=== PATIENT | female | born 2000 | race Two or more races ===

== ENCOUNTER 2021-12-04 17:31 | Observation (INO) | payer MEDICAID, OTHER ==
[~2021-12-04] VITALS: Ht 162.6 cm; Wt 81.6 kg
[2021-12-04] MEDS ORDERED: PREN-96 PO (18:35)
[2021-12-04 19:53] LABS: Alcohol, Urine < 3.0 mg/dL (0-10); Barbiturate Scree,Urine NEGATIVE (NEGATIVE); Benzodiazephine Screen, Urine NEGATIVE (NEGATIVE); Cannabinoid Screen, Urine POSITIVE (NEGATIVE); Cocaine Screen, Urine NEGATIVE (NEGATIVE); Opiate Scree,Urine NEGATIVE (NEGATIVE); Phencyclidine Screen, Urine NEGATIVE (NEGATIVE)
[2021-12-04 20:00] LABS: Amphetamine Screen, Urine NEGATIVE (NEGATIVE); Urine Amorphous Crystal MOD /hpf (None Seen); Urine Bacteria FEW /hpf (None Seen); Urine Blood Negative /uL (Negative); Urine Specific Gravity 1.021 (1.001-1.035); Urine WBC 2 /hpf (0 - 5)
[2021-12-04 20:06] LABS: Basophils # (auto) 0 10 ^3/uL (0-0.2); Basophils % (auto) 0.2 % (0.0-2.0); Eosinophils # (auto) 0 10 ^3/uL (0-0.8); Eosinophils % (auto) 0.5 % (0.0-7.0); Hemoglobin 11.6 g/dL (12.2-16.2); Lymphocytes # (auto) 1.4 10 ^3/uL (0.4-5.4); Lymphocytes % (auto) 17.2 % (10.0-50.0); Mean Corpuscular Hemoglobin 31.6 pg (28.0-32.0); Monocytes # (auto) 0.4 10 ^3/uL (0-1.3); Monocytes % (auto) 4.9 % (0.0-12.0); Neutrophils # (auto) 6.1 10 ^3/uL (1.6-8.6); Neutrophils % (auto) 77.2 % (37.0-80.0); Nucleated Red Blood Cells % 0.1 %; Red Blood Cells 3.65 10^6/uL (4.0-5.20); Red Cell Distribution Width 12.2 % (11.8-14.3); White Blood Cell 7.9 10^3/uL (4.4-10.8)
[2021-12-04 20:22] LABS: Albumin 2.7 g/dL (3.4-5.0); Calcium 8.7 mg/dL (8.5-10.1); Potassium 3.7 mmol/L (3.5-5.1)
[2021-12-04 20:25] LABS: Bilirubin, Total 0.3 mg/dL (0.2-1.0); Total Protein 6.1 g/dL (6.4-8.2)
[2021-12-04 20:32] LABS: INR 0.87 (0.9-1.15); Partial Thromboplastin Time 24.8 sec (24.6-33.4)
[2021-12-06 06:06] LABS: RPR Non Reactive (Non Reactive); Rubella Antibodies, IgG 2.48 index (Immune >0.99)
== END 2021-12-04 19:30 | disposition home or self-care (01) ==
LOC: EDBD 17:31 → LDRP 17:31
PROVIDERS: ADMIT Obstetrics & Gynecology; ATTEND Obstetrics & Gynecology
DX: O09.33 Supervision of pregnancy with insufficient antenatal care, third trimester (principal); Z20.822 Contact with and (suspected) exposure to COVID-19; O99.323 Drug use complicating pregnancy, third trimester; F12.90 Cannabis use, unspecified, uncomplicated; Z3A.34 34 weeks gestation of pregnancy
CPT/HCPCS: 36415; 59025; 76805; 80053; 80307; 81001; 81002; 83036; 85025; 85610; 85730; 86592; 86703; 86762; 86850; 86900; 86901; 87340; 87426; 94760; G0378

== ENCOUNTER → 2021-12-09 | Outpatient (CLI) | payer MEDICAID ==
[~2021-12-09] MED LIST: PREN-96 PO
[2021-12-09 09:38] LABS: Basophils # (auto) 0 10 ^3/uL (0-0.2); Basophils % (auto) 0.4 % (0.0-2.0); Eosinophils # (auto) 0.1 10 ^3/uL (0-0.8); Eosinophils % (auto) 1.3 % (0.0-7.0); Hematocrit 36.1 % (36.0-46.0); Hemoglobin 12.1 g/dL (12.2-16.2); Lymphocytes # (auto) 1.9 10 ^3/uL (0.4-5.4); Lymphocytes % (auto) 21.1 % (10.0-50.0); Mean Corpuscular Hemoglobin 31.4 pg (28.0-32.0); Mean Corpuscular Hgb Conc. 33.6 g/dL (32.0-36.0); Mean Corpuscular Volume 93.4 fL (80.0-100.0); Monocytes # (auto) 0.5 10 ^3/uL (0-1.3); Monocytes % (auto) 5.3 % (0.0-12.0); Neutrophils # (auto) 6.5 10 ^3/uL (1.6-8.6); Neutrophils % (auto) 71.9 % (37.0-80.0); Red Blood Cells 3.86 10^6/uL (4.0-5.20); Red Cell Distribution Width 12.4 % (11.8-14.3)
== END | disposition home or self-care (01) ==
LOC: LAB 09:19
PROVIDERS: ATTEND Obstetrics & Gynecology
DX: Z34.00 Encounter for supervision of normal first pregnancy, unspecified trimester (principal); O99.810 Abnormal glucose complicating pregnancy
CPT/HCPCS: 36415; 82951; 85025

== ENCOUNTER → 2021-12-11 | Outpatient (CLI) | payer MEDICAID ==
[2021-12-11 11:56] LABS: Basophils # (auto) 0 10 ^3/uL (0-0.2); Basophils % (auto) 0.1 % (0.0-2.0); Eosinophils # (auto) 0 10 ^3/uL (0-0.8); Eosinophils % (auto) 0.4 % (0.0-7.0); Hematocrit 36.4 % (36.0-46.0); Lymphocytes # (auto) 1.3 10 ^3/uL (0.4-5.4); Lymphocytes % (auto) 16.4 % (10.0-50.0); Mean Corpuscular Hemoglobin 30.9 pg (28.0-32.0); Mean Corpuscular Hgb Conc. 33.1 g/dL (32.0-36.0); Mean Corpuscular Volume 93.5 fL (80.0-100.0); Monocytes # (auto) 0.3 10 ^3/uL (0-1.3); Monocytes % (auto) 3.5 % (0.0-12.0); Neutrophils # (auto) 6.2 10 ^3/uL (1.6-8.6); Neutrophils % (auto) 79.6 % (37.0-80.0); Red Blood Cells 3.89 10^6/uL (4.0-5.20); Red Cell Distribution Width 12.4 % (11.8-14.3); White Blood Cell 7.8 10^3/uL (4.4-10.8)
[2021-12-12 08:06] LABS: RPR Non Reactive (Non Reactive)
== END | disposition home or self-care (01) ==
LOC: LAB 11:39
PROVIDERS: ATTEND Obstetrics & Gynecology
DX: Z34.80 Encounter for supervision of other normal pregnancy, unspecified trimester (principal); Z3A.00 Weeks of gestation of pregnancy not specified
CPT/HCPCS: 36415; 84112; 85025; 86592

== ENCOUNTER 2021-12-23 08:51 | Observation (INO) | payer MEDICAID | END 2021-12-23 16:35 | disposition home or self-care (01) | LOC: UNDOADMOB 13:10 → LDRP 13:10 | PROVIDERS: ADMIT Obstetrics & Gynecology Obstetrics; ATTEND Obstetrics & Gynecology Obstetrics | DX: O24.419 Gestational diabetes mellitus in pregnancy, unspecified control (principal); Z3A.37 37 weeks gestation of pregnancy | CPT/HCPCS: 59025; 76818; 81002; 82948; 82962; 94760; G0378 ==

== ENCOUNTER → 2021-12-25 | Outpatient (CLI) | payer MEDICAID ==
[2021-12-25 10:44] LABS: Basophils # (auto) 0 10 ^3/uL (0-0.2); Basophils % (auto) 0.1 % (0.0-2.0); Eosinophils # (auto) 0 10 ^3/uL (0-0.8); Eosinophils % (auto) 0.5 % (0.0-7.0); Hematocrit 36.8 % (36.0-46.0); Hemoglobin 12.2 g/dL (12.2-16.2); Lymphocytes # (auto) 1.2 10 ^3/uL (0.4-5.4); Lymphocytes % (auto) 16.2 % (10.0-50.0); Mean Corpuscular Hemoglobin 30.6 pg (28.0-32.0); Mean Corpuscular Hgb Conc. 33.3 g/dL (32.0-36.0); Mean Corpuscular Volume 91.8 fL (80.0-100.0); Monocytes # (auto) 0.3 10 ^3/uL (0-1.3); Monocytes % (auto) 4.3 % (0.0-12.0); Neutrophils # (auto) 6.1 10 ^3/uL (1.6-8.6); Neutrophils % (auto) 78.9 % (37.0-80.0); Red Cell Distribution Width 12.3 % (11.8-14.3); White Blood Cell 7.7 10^3/uL (4.4-10.8)
[2021-12-26 08:06] LABS: RPR Non Reactive (Non Reactive)
== END | disposition home or self-care (01) ==
LOC: LAB 09:50
PROVIDERS: ATTEND Obstetrics & Gynecology
DX: Z34.00 Encounter for supervision of normal first pregnancy, unspecified trimester (principal); Z3A.00 Weeks of gestation of pregnancy not specified
CPT/HCPCS: 36415; 83036; 84112; 84702; 85025; 86592; 86703; 86762; 86850; 86900; 86901; 87086; 87340

== ENCOUNTER 2021-12-26 07:56 | Observation (INO) | payer MEDICAID ==
[~2021-12-26] VITALS: Ht 162.6 cm; Wt 79.4 kg
[2022-01-08] MEDS ORDERED: CEPHALEXIN 250 MG CAP PO SCH (12:27)
[2022-01-08] MEDS ORDERED: CEPH-510 PO (12:59)
== END 2022-01-08 15:30 | disposition home or self-care (01) ==
LOC: LDRP 01-08 10:54 → UNDOADMOB 01-08 10:54 → LDRP 01-08 11:10
PROVIDERS: ADMIT Obstetrics & Gynecology; ATTEND Obstetrics & Gynecology
DX: O24.419 Gestational diabetes mellitus in pregnancy, unspecified control (principal); O62.9 Abnormality of forces of labor, unspecified; O99.891 Other specified diseases and conditions complicating pregnancy; M54.9 Dorsalgia, unspecified; Z3A.39 39 weeks gestation of pregnancy
CPT/HCPCS: 59025; 76818; 81002; 82948; 82962; 94760; G0378

== ENCOUNTER → 2021-12-31 | Outpatient (CLI) | payer MEDICAID ==
[2021-12-31 10:45] LABS: Basophils # (auto) 0 10 ^3/uL (0-0.2); Basophils % (auto) 0.3 % (0.0-2.0); Eosinophils # (auto) 0 10 ^3/uL (0-0.8); Eosinophils % (auto) 0.3 % (0.0-7.0); Hematocrit 35.6 % (36.0-46.0); Hemoglobin 12.2 g/dL (12.2-16.2); Lymphocytes # (auto) 1.3 10 ^3/uL (0.4-5.4); Lymphocytes % (auto) 15.9 % (10.0-50.0); Mean Corpuscular Hemoglobin 30.7 pg (28.0-32.0); Mean Corpuscular Hgb Conc. 34.2 g/dL (32.0-36.0); Mean Corpuscular Volume 89.8 fL (80.0-100.0); Monocytes # (auto) 0.4 10 ^3/uL (0-1.3); Monocytes % (auto) 4.5 % (0.0-12.0); Neutrophils # (auto) 6.6 10 ^3/uL (1.6-8.6); Red Blood Cells 3.96 10^6/uL (4.0-5.20); Red Cell Distribution Width 12.5 % (11.8-14.3); White Blood Cell 8.4 10^3/uL (4.4-10.8)
== END | disposition home or self-care (01) ==
LOC: LAB 10:09
PROVIDERS: ATTEND Obstetrics & Gynecology
DX: Z34.80 Encounter for supervision of other normal pregnancy, unspecified trimester (principal); Z3A.00 Weeks of gestation of pregnancy not specified; Z72.51 High risk heterosexual behavior
CPT/HCPCS: 36415; 85025; 86850; 86900; 86901; 87086; 87340

== ENCOUNTER 2022-01-09 03:57 | Inpatient (IN) | payer MEDICAID ==
[~2022-01-09] VITALS: Ht 160 cm; Wt 91.2 kg
[~2022-01-09 03:57] MED LIST changes: +CEPH-510 PO
[2022-01-09] MEDS ORDERED: LIDOCAINE 2%HCL (LOCAL ANESTH.) INJ 10ml MDV IJ PRN (04:30)
[2022-01-09] MEDS ORDERED: PROMETHAZINE HCL 25 MG/ML 1ML IV PRN (04:30)
[2022-01-09] MEDS ORDERED: DERMOPLAST 60ML BOTTLE TOP PRN (04:30)
[2022-01-09] MEDS ORDERED: WITCH HAZEL-GLYCERIN PAD TOP PRN (04:30)
[2022-01-09] MEDS ORDERED: BUTORPHANOL TARTRATE 2 MG/1 ML VIAL IV PRN (04:30)
[2022-01-09] MEDS ORDERED: PHISODERM TOP SOLN 240ML BTL TOP PRN (04:30)
[2022-01-09] MEDS ORDERED: LACT. RINGERS/OXYTOCIN 20UNITS 500 ML IV ONE ×2 (04:45→05:15)
[2022-01-09] MEDS: LACTATED RINGER'S 1,000 ML IV SCH ×3 (04:46→22:17)
[2022-01-09 05:10] LABS: Basophils # (auto) 0 10 ^3/uL (0-0.2); Basophils % (auto) 0.3 % (0.0-2.0); Eosinophils # (auto) 0 10 ^3/uL (0-0.8); Hematocrit 34.9 % (36.0-46.0); Hemoglobin 11.7 g/dL (12.2-16.2); Lymphocytes # (auto) 0.6 10 ^3/uL (0.4-5.4); Lymphocytes % (auto) 8.4 % (10.0-50.0); Mean Corpuscular Hemoglobin 29.7 pg (28.0-32.0); Mean Corpuscular Hgb Conc. 33.4 g/dL (32.0-36.0); Mean Corpuscular Volume 88.9 fL (80.0-100.0); Monocytes # (auto) 0.6 10 ^3/uL (0-1.3); Monocytes % (auto) 7.6 % (0.0-12.0); Neutrophils # (auto) 6.4 10 ^3/uL (1.6-8.6); Neutrophils % (auto) 83.7 % (37.0-80.0); Red Blood Cells 3.93 10^6/uL (4.0-5.20); Red Cell Distribution Width 12.6 % (11.8-14.3); White Blood Cell 7.6 10^3/uL (4.4-10.8)
[2022-01-09 05:16] LABS: Urine Bacteria FEW /hpf (None Seen); Urine Blood 1+ /uL (Negative); Urine Mucus FEW (None Seen); Urine Specific Gravity 1.028 (1.001-1.035); Urine WBC 52 /hpf (0 - 5)
[2022-01-09] MEDS: BUTORPHANOL TARTRATE 2 MG/1 ML VIAL IV PRN ×2 (05:23→14:51)
[2022-01-09 05:32] LABS: Albumin 2.7 g/dL (3.4-5.0); Calcium 8.3 mg/dL (8.5-10.1); Potassium 3.8 mmol/L (3.5-5.1)
[2022-01-09 05:36] LABS: BUN/Creatinine Ratio 13.8; Bilirubin, Total 0.6 mg/dL (0.2-1.0); Total Protein 6.1 g/dL (6.4-8.2)
[2022-01-09 05:37] LABS: Alcohol, Urine < 3.0 mg/dL (0-10); Amphetamine Screen, Urine NEGATIVE (NEGATIVE); Barbiturate Scree,Urine NEGATIVE (NEGATIVE); Benzodiazephine Screen, Urine NEGATIVE (NEGATIVE); Cannabinoid Screen, Urine POSITIVE (NEGATIVE); Cocaine Screen, Urine NEGATIVE (NEGATIVE); Opiate Scree,Urine NEGATIVE (NEGATIVE); Phencyclidine Screen, Urine NEGATIVE (NEGATIVE)
[2022-01-09 05:38] LABS: INR 0.88 (0.9-1.15); Partial Thromboplastin Time 27.1 sec (24.6-33.4)
[2022-01-09] MEDS: ACCU-CHEK COMFORT CURVE STRIP VI SCH ×4 (08:05→20:30)
[2022-01-09] MEDS: miSOPROStol 50 MCG per PRE-CUT 1/2 TAB PO PRN ×2 (08:28→12:29)
[2022-01-09] MEDS ORDERED: PENICILLIN G POT 5MIL/D5 50ML 50 ML IV ONE (11:00)
[2022-01-09] MEDS ORDERED: PENICILLIN G POTASSIUM 2,500,000 UNITS in D5W 5% 50 ML IV SCH (15:00)
[2022-01-09] MEDS ORDERED: D5W 5% 1,000 ML IV ONE (16:00)
[2022-01-09] MEDS ORDERED: D5W/LACTATED RINGERS 1,000 ML IV ONE (16:15)
[2022-01-09] MEDS ORDERED: LACT. RINGERS/OXYTOCIN 20UNITS 1,000 ML IV SCH (16:45)
[2022-01-09] MEDS ORDERED: TERBUTALINE SULFATE 1 MG/ML 1ML VIAL SC PRN (16:45)
[2022-01-09] MEDS: PENICILLIN G POTASSIUM 2,500,000 UNITS in D5W 5% 50 ML IV SCH ×2 (16:52→20:14)
[2022-01-09] MEDS ORDERED: ROPIVACAINE HCL 200 ML EPI SCH (18:00)
[2022-01-09] MEDS ORDERED: ePHEDrine SULFATE 50 MG/ML AMP IV ONE (18:00)
[2022-01-09] MEDS ORDERED: fentaNYL CITRATE 100 MCG/2 ML VL IV ONE (18:00)
[2022-01-09] MEDS ORDERED: NALOXONE HCL 0.4 MG/ML VIAL IV ONE (18:00)
[2022-01-09] MEDS ORDERED: LIDOCAINE HCL 2 %PF INJ 10ML AMP IJ ONE (18:00)
[2022-01-09] MEDS ORDERED: LACTATED RINGER'S 1,000 ML IV ONE (18:15)
[2022-01-09] MEDS ORDERED: ceFAZolin 2 GM in D5W 5% 100 ML IV ONE (20:30)
[2022-01-09] MEDS ORDERED: ceFAZolin 1GM/50ML 50 ML IV SCH (22:00)
[2022-01-09] MEDS ORDERED: SODIUM CHLORIDE 0.9% 300 ML IUPC ONE (22:45)
[2022-01-09] MEDS: SODIUM CHLORIDE 0.9% 1,000 ML IUPC SCH (23:30)
[2022-01-10] MEDS: PENICILLIN G POTASSIUM 2,500,000 UNITS in D5W 5% 50 ML IV SCH ×3 (00:25→09:09)
[2022-01-10] MEDS: ACCU-CHEK COMFORT CURVE STRIP VI SCH ×3 (01:48→10:14)
[2022-01-10 05:07] LABS: RPR Non Reactive (Non Reactive)
[2022-01-10] MEDS: ceFAZolin 1GM/50ML 50 ML IV SCH ×3 (06:01→22:33)
[2022-01-10] MEDS: SODIUM CHLORIDE 0.9% 1,000 ML IUPC SCH (08:45)
[2022-01-10] MEDS: LACTATED RINGER'S 1,000 ML IV SCH (09:09)
[2022-01-10] MEDS ORDERED: miSOPROStol 100 mcg TAB ONE (11:09)
[2022-01-10] MEDS ORDERED: METHYLERGONOVINE MALEATE 0.2 MG/ML AMP IM ONE (11:09)
[2022-01-10] MEDS ORDERED: ACETAMINOPHEN 325 MG TAB PO PRN (12:30)
[2022-01-10] MEDS ORDERED: ONDANSETRON HCL 4 MG/2 ML VIAL IV PRN (12:30)
[2022-01-10] MEDS ORDERED: miSOPROStol 100 mcg TAB PR PRN (14:30)
[2022-01-10] MEDS ORDERED: METHYLERGONOVINE MALEATE 0.2 MG/ML AMP IM PRN (14:30)
[2022-01-10] MEDS ORDERED: miSOPROStol 100 mcg TAB SL PRN (14:30)
[2022-01-10 14:39] VITALS: BP 108/67
[2022-01-10 19:30] VITALS: BP 98/54
[2022-01-10] MEDS: IBUPROFEN 600 MG TAB PO PRN (22:33)
[2022-01-10 23:30] VITALS: BP 115/73
[2022-01-11 03:30] VITALS: BP 98/65
[2022-01-11] MEDS ORDERED: ACCU-CHEK COMFORT CURVE STRIP VI ONE (05:00)
[2022-01-11 07:00] VITALS: BP 108/60
[2022-01-11] MEDS: IBUPROFEN 600 MG TAB PO PRN ×2 (07:07→19:33)
[2022-01-11] MEDS: ceFAZolin 1GM/50ML 50 ML IV SCH (07:07)
[2022-01-11 11:30] VITALS: BP 108/60
[2022-01-11 15:30] VITALS: BP 100/67
[2022-01-11 19:00] VITALS: BP 107/64
== END 2022-01-11 20:12 | disposition home or self-care (01) | DRG 560 ==
LOC: LDRP 03:57 → OBSVTOIN 04:10 → LDRP 04:11
PROVIDERS: ADMIT Obstetrics & Gynecology; ATTEND Obstetrics & Gynecology
PROC: 10H07YZ Insertion of Other Device into Products of Conception, Via Natural or Artificial Opening (ICD-10-PCS; 2022-01-09)
PROC: 10E0XZZ Delivery of Products of Conception, External Approach (ICD-10-PCS; principal; 2022-01-10)
PROC: 0KQM0ZZ Repair Perineum Muscle, Open Approach (ICD-10-PCS; 2022-01-10)
PROC: 3E0R3BZ Introduction of Anesthetic Agent into Spinal Canal, Percutaneous Approach (ICD-10-PCS; 2022-01-10)
PROC: 00HU33Z Insertion of Infusion Device into Spinal Canal, Percutaneous Approach (ICD-10-PCS; 2022-01-10)
PROC: 0W8NXZZ Division of Female Perineum, External Approach (ICD-10-PCS; 2022-01-10)
DX: O98.52 Other viral diseases complicating childbirth (principal); Z37.0 Single live birth; U07.1 COVID-19; Z3A.39 39 weeks gestation of pregnancy; O99.214 Obesity complicating childbirth; O70.1 Second degree perineal laceration during delivery
CPT/HCPCS: 36415; 59025; 59409; 76818; 80053; 80307; 81001; 81002; 82948; 82962; 85025; 85610; 85730; 86592; 86850; 86900; 86901; 94760; 96360; 96361; 96365; 96366; 96372; 96374; 96375; G0378; J0690; J2001; J2540; J2590; J7060

== ENCOUNTER 2022-11-12 07:19 | Inpatient (IN) | payer MEDICAID ==
[~2022-11-12] VITALS: Ht 165.1 cm; Wt 74.8 kg
[~2022-11-12 07:19] MED LIST changes: -CEPH-510 PO
[2022-11-12] MEDS ORDERED: WITCH HAZEL-GLYCERIN PAD TOP PRN (07:45)
[2022-11-12] MEDS ORDERED: PHISODERM TOP SOLN 240ML BTL TOP PRN (07:45)
[2022-11-12] MEDS ORDERED: PROMETHAZINE HCL 25 MG/ML 1ML IV PRN (07:45)
[2022-11-12] MEDS ORDERED: LIDOCAINE 2%HCL (LOCAL ANESTH.) INJ 20ML MDV IJ PRN (07:45)
[2022-11-12] MEDS ORDERED: DERMOPLAST 60ML BOTTLE TOP PRN (07:45)
[2022-11-12] MEDS ORDERED: LACTATED RINGER'S 1,000 ML IV SCH (07:45)
[2022-11-12] MEDS ORDERED: PENICILLIN G POT 5MIL/D5 50ML 50 ML IV ONE ×2 (08:00→08:10)
[2022-11-12] MEDS ORDERED: LACT. RINGERS/OXYTOCIN 20UNITS 1,000 ML IV ONE (08:10)
[2022-11-12 08:37] LABS: Basophils # (auto) 0 10 ^3/uL (0-0.2); Eosinophils # (auto) 0.1 10 ^3/uL (0-0.8); Hemoglobin 9.9 g/dL (12.2-16.2); Monocytes # (auto) 0.4 10 ^3/uL (0-1.3); Neutrophils # (auto) 6.4 10 ^3/uL (1.6-8.6)
[2022-11-12 08:37] LABS: Urine Bacteria NONE SEEN /hpf (None Seen); Urine Blood Negative /uL (Negative); Urine Mucus FEW (None Seen); Urine Specific Gravity 1.019 (1.001-1.035); Urine WBC 7 /hpf (0 - 5)
[2022-11-12 08:39] LABS: Basophils % (auto) 0.2 % (0.0-2.0); Hematocrit 30.4 % (36.0-46.0); Lymphocytes # (auto) 1.6 10 ^3/uL (0.4-5.4); Lymphocytes % (auto) 18.9 % (10.0-50.0); Mean Corpuscular Hemoglobin 26.4 pg (28.0-32.0); Mean Corpuscular Hgb Conc. 32.6 g/dL (32.0-36.0); Mean Corpuscular Volume 81.1 fL (80.0-100.0); Monocytes % (auto) 4.7 % (0.0-12.0); Neutrophils % (auto) 75.2 % (37.0-80.0); Red Blood Cells 3.75 10^6/uL (4.0-5.20); Red Cell Distribution Width 15.2 % (11.8-14.3); White Blood Cell 8.4 10^3/uL (4.4-10.8)
[2022-11-12 08:49] LABS: Albumin 2.5 g/dL (3.4-5.0); Calcium 8.3 mg/dL (8.5-10.1); Potassium 3.6 mmol/L (3.5-5.1)
[2022-11-12 08:54] LABS: BUN/Creatinine Ratio 12.3 (10.0-20.0); Bilirubin, Total 0.2 mg/dL (0.2-1.0); Total Protein 6.5 g/dL (6.4-8.2)
[2022-11-12 09:25] LABS: INR 0.9 (0.9-1.15); Partial Thromboplastin Time 25.4 SEC (24.5-34.5)
[2022-11-12 09:30] LABS: Amphetamine Screen, Urine NEGATIVE (NEGATIVE); Barbiturate Scree,Urine NEGATIVE (NEGATIVE); Benzodiazephine Screen, Urine NEGATIVE (NEGATIVE); Cannabinoid Screen, Urine NEGATIVE (NEGATIVE); Cocaine Screen, Urine NEGATIVE (NEGATIVE); Opiate Scree,Urine NEGATIVE (NEGATIVE); Phencyclidine Screen, Urine NEGATIVE (NEGATIVE)
[2022-11-12] MEDS ORDERED: NALOXONE HCL 0.4 MG/ML VIAL IV ONE (09:30)
[2022-11-12] MEDS ORDERED: ePHEDrine SULFATE 50 MG/ML AMP IV ONE (09:30)
[2022-11-12] MEDS ORDERED: LACTATED RINGER'S 1,000 ML IV ONE (09:30)
[2022-11-12] MEDS ORDERED: ROPIVACAINE HCL 200 ML EPI SCH ×3 (09:30→10:45)
[2022-11-12] MEDS ORDERED: fentaNYL CITRATE 100 MCG/2 ML VL IV ONE (09:30)
[2022-11-12] MEDS ORDERED: LACT. RINGERS/OXYTOCIN 20UNITS 1,000 ML IV SCH (09:30)
[2022-11-12] MEDS ORDERED: Lidocaine W-Epinephrine 1.5%-1:200,000 INJ 10ml Vial IJ ONE (09:30)
[2022-11-12 09:32] LABS: Alcohol, Urine < 3.0 mg/dL (0-10)
[2022-11-12] MEDS: PENICILLIN G POTASSIUM 2,500,000 UNITS in D5W 5% 50 ML IV SCH ×2 (12:20→16:08)
[2022-11-12] MEDS ORDERED: LACTATED RINGER'S 250 ML IUPC ONE (14:30)
[2022-11-12] MEDS ORDERED: LACTATED RINGER'S 1,000 ML IUPC SCH (15:45)
[2022-11-12] MEDS ORDERED: LACT. RINGERS/OXYTOCIN 20UNITS 500 ML IV ONE ×2 (17:00→17:30)
[2022-11-12] MEDS ORDERED: ONDANSETRON ODT 4 MG TAB PO PRN (17:30)
[2022-11-12] MEDS ORDERED: ACETAMINOPHEN 325 MG TAB PO PRN (17:30)
[2022-11-12] MEDS: IBUPROFEN 600 MG TAB PO PRN (20:48)
[2022-11-12] MEDS ORDERED: DOCUSATE SOD 100 MG CAP PO SCH (22:00)
[2022-11-12 23:10] VITALS: BP 101/57; PULSE 77; RESP 16; TEMP 98.1
[2022-11-13 03:15] VITALS: BP 95/54; PULSE 78; RESP 16; TEMP 97.9
[2022-11-13] MEDS: IBUPROFEN 600 MG TAB PO PRN ×2 (07:28→17:12)
[2022-11-13 07:30] VITALS: BP 106/61; PULSE 88; RESP 16; TEMP 98
[2022-11-13 08:06] LABS: RPR Non Reactive (Non Reactive)
[2022-11-13] MEDS ORDERED: ASCO1TAB27 PO (08:11)
[2022-11-13] MEDS ORDERED: IBU600T PO (08:11)
[2022-11-13] MEDS ORDERED: CARB1TAB65 PO (08:11)
[2022-11-13] MEDS ORDERED: DOCU-265 PO (08:11)
[2022-11-13] MEDS ORDERED: PREN-96 PO (08:11)
[2022-11-13] MEDS ORDERED: ACET-1882 PO (08:11)
[2022-11-13 11:12] VITALS: BP 101/56; PULSE 68; RESP 16; TEMP 98.4; O2SAT 97
[2022-11-13] MEDS ORDERED: TETANUS-DIPTH-ACEL PERTUSSIS 0.5ML SYR Tdap IM ONE (14:45)
[2022-11-13 14:56] VITALS: BP 104/54; PULSE 72; RESP 16; TEMP 97.6; O2SAT 98
[2022-11-13 19:10] VITALS: BP 113/69; PULSE 84; RESP 15; TEMP 98.2; O2SAT 97
[2022-11-13 21:46] VITALS: BP 110/73; PULSE 82; RESP 16; TEMP 98.6; O2SAT 97
== END 2022-11-13 21:46 | disposition home or self-care (01) | DRG 560 ==
LOC: LDRP 07:19 → OBSVTOIN 07:25 → LDRP 07:26
PROVIDERS: ADMIT Obstetrics & Gynecology; ATTEND Obstetrics & Gynecology
PROC: 10E0XZZ Delivery of Products of Conception, External Approach (ICD-10-PCS; principal; 2022-11-12)
PROC: 10907ZC Drainage of Amniotic Fluid, Therapeutic from Products of Conception, Via Natural or Artificial Opening (ICD-10-PCS; 2022-11-12)
PROC: 3E0R3BZ Introduction of Anesthetic Agent into Spinal Canal, Percutaneous Approach (ICD-10-PCS; 2022-11-12)
PROC: 0HQ9XZZ Repair Perineum Skin, External Approach (ICD-10-PCS; 2022-11-12)
PROC: 00HU33Z Insertion of Infusion Device into Spinal Canal, Percutaneous Approach (ICD-10-PCS; 2022-11-12)
PROC: 3E0234Z Introduction of Serum, Toxoid and Vaccine into Muscle, Percutaneous Approach (ICD-10-PCS; 2022-11-13)
DX: O99.214 Obesity complicating childbirth (principal); Z37.0 Single live birth; E66.01 Morbid (severe) obesity due to excess calories; O70.0 First degree perineal laceration during delivery; Z3A.39 39 weeks gestation of pregnancy; Z23 Encounter for immunization
CPT/HCPCS: 36415; 59025; 59409; 62282; 80053; 80307; 81001; 81002; 85025; 85610; 85730; 86592; 86850; 86900; 86901; 90715; 94760; 96360; 96361; 96365; 96366; 96372; G0378; J2540; J2590; J7060

== ENCOUNTER 2023-02-23 22:52 | Emergency (ER) | payer MEDICAID ==
[~2023-02-23] VITALS: Ht 167.6 cm; Wt 93.3 kg
[~2023-02-23 22:52] MED LIST changes: +ACET-1882 PO; +ASCO1TAB27 PO; +CARB1TAB65 PO; +DOCU-265 PO; +IBU600T PO
[2023-02-23 23:21] VITALS: BP 126/73; PULSE 100; RESP 18; TEMP 97.5
[2023-02-24] MEDS ORDERED: diphenhdrAMINE HCL 50 MG/1 ML VL IM ONE (00:30)
[2023-02-24] MEDS ORDERED: KETOROLAC TROMETH 30 MG/ML 1ML VIAL IM ONE (00:30)
[2023-02-24] MEDS ORDERED: DexAMETHasone SOD PHOS 10MG/1ML VIAL INJ IM ONE (00:30)
[2023-02-24] MEDS ORDERED: PRED20TA2 PO (01:53)
[2023-02-24] MEDS ORDERED: DIPH25CA66 PO (01:53)
[2023-02-24 02:40] VITALS: O2SAT 98
== END 2023-02-24 02:45 | disposition home or self-care (01) ==
LOC: ER 22:52
DX: L50.0 Allergic urticaria (principal); R51.9 Headache, unspecified; Z79.899 Other long term (current) drug therapy
CPT/HCPCS: 96372; 99284; J1100; J1200; J1885